=== PATIENT | female | born 1955 ===

== ENCOUNTER 2021-06-26 07:05 | Day surgery (SDC) | payer OTHER ==
[~2021-06-26 07:05] MED LIST: ADULT LOW DOSE81 M1 PO; AVAPRO150 MG PO; HUMUL; JANUMET XR 1001 EACH PO; LANTUS; TIROSINT75 MCG PO; VERELAN240 MG PO; [UNRECOGNIZED DRUG - OTHER] PO
[2021-06-26] MEDS ORDERED: IBU600 MG PO (10:31)
== END 2021-06-26 15:30 | disposition home or self-care (01) ==
LOC: CIR.AMB 07:05
PROVIDERS: ATTEND Obstetrics & Gynecology Gynecology
DX: N85.01 Benign endometrial hyperplasia (principal); I10 Essential (primary) hypertension; F32.A Depression, unspecified; M19.90 Unspecified osteoarthritis, unspecified site; M81.0 Age-related osteoporosis without current pathological fracture; E66.9 Obesity, unspecified; E03.9 Hypothyroidism, unspecified

== ENCOUNTER 2021-11-06 05:50 | Day surgery (SDC) | payer OTHER ==
[~2021-11-06] VITALS: Ht 157.5 cm; Wt 96.2 kg
[~2021-11-06 05:50] MED LIST changes: +IBU600 MG PO
== END 2021-11-06 10:10 | disposition home or self-care (01) ==
LOC: SURG 05:50 → O/R 05:50 → CIR.AMB 05:50 → SURG 07:00 → EDSTATUS 09:30 → CIR.AMB 10:10 → O/R 10:10
PROVIDERS: ATTEND Obstetrics & Gynecology Gynecology
DX: N95.0 Postmenopausal bleeding (principal); Z53.09 Procedure and treatment not carried out because of other contraindication; T88.4XXA Failed or difficult intubation, initial encounter; Y65.8 Other specified misadventures during surgical and medical care; Y92.234 Operating room of hospital as the place of occurrence of the external cause; I10 Essential (primary) hypertension; E11.9 Type 2 diabetes mellitus without complications; E03.9 Hypothyroidism, unspecified; Z20.822 Contact with and (suspected) exposure to COVID-19; Z86.16 Personal history of COVID-19; E78.5 Hyperlipidemia, unspecified; E66.01 Morbid (severe) obesity due to excess calories

== ENCOUNTER 2021-11-20 07:30 | Inpatient (IN) | payer OTHER ==
[~2021-11-20] VITALS: Ht 157.5 cm; Wt 96.2 kg
[2021-11-22] MEDS ORDERED: IBUPROFEN800 MG PO (07:31)
[2021-11-22] MEDS ORDERED: AMOX1TAB5 PO (07:31)
== END 2021-11-22 10:00 | disposition home or self-care (01) | DRG 743 ==
LOC: EDSTATUS 07:30 → CIR.AMB 07:30 → SURG 07:31 → OB/GYN 07:58 → O/R 07:58 → SURG 08:00 → OB/GYN 14:04
PROVIDERS: ADMIT Obstetrics & Gynecology Gynecology; ATTEND Obstetrics & Gynecology Gynecology
PROC: 0UT70ZZ Resection of Bilateral Fallopian Tubes, Open Approach (ICD-10-PCS; 2021-11-20)
PROC: 0UT20ZZ Resection of Bilateral Ovaries, Open Approach (ICD-10-PCS; 2021-11-20)
PROC: 0UT90ZZ Resection of Uterus, Open Approach (ICD-10-PCS; principal; 2021-11-20 08:00)
DX: D25.1 Intramural leiomyoma of uterus (principal); N85.01 Benign endometrial hyperplasia; N72 Inflammatory disease of cervix uteri; N83.291 Other ovarian cyst, right side; N83.292 Other ovarian cyst, left side; Z20.822 Contact with and (suspected) exposure to COVID-19